=== PATIENT | female | born 2000 | race Caucasian/White ===

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

== ENCOUNTER → 2022-08-11 | Outpatient (CLI) | payer BC ==
[2022-08-12 02:59] LABS: BUN/Creat Ratio 17.12 Ratio (12.00-20.00); Blood Urea Nitrogen 13.7 mg/dL (9.0-27.0); Calcium 10.1 mg/dL (8.7-10.3); Carbon Dioxide 22.9 mmol/L (21.6-31.8); Chloride 104 mmol/L (96-109); Creatine Kinase 74 U/L (26-186); Glucose 84 mg/dL (70-110); Potassium 4.3 mmol/L (3.5-5.5); Rheumatoid Factor, Qnt <15 IU/mL (0-15); Sodium 141 mmol/L (135-145); Uric Acid 6.6 mg/dL (2.9-7.7)
[2022-08-12 03:00] LABS: ALT 16 U/L (8-44); AST 16 U/L (13-35)
[2022-08-12 03:20] LABS: Basophils # (A) 0.06 X 10*3/uL (0.00-0.10); Basophils % (A) 0.7 %; Eosinophils # (A) 0.21 X 10*3/uL (0.04-0.35); Eosinophils % (A) 2.5 %; HCT 42.4 % (37.2-46.3); HGB 13.7 d/dL (12.0-15.0); Lymphocytes % (A) 31.5 %; MCH 26.2 pg (27.0-32.0); MCHC 32.3 d/dL (32.0-37.0); MCV 81.2 FL (80.0-97.0); Mean Platelet Volume 12.2 FL (9.5-12.2); Monocytes # (A) 0.36 X 10*3/uL (0.20-1.00); Monocytes % (A) 4.4 %; NRBC Per 100 WBC 0 X 10*3/uL (0.00-0.01); Neutrophils % (A) 60.7 %; Platelet Count 208 X 10*3/uL (140-440); RBC 5.22 X 10*6/uL (4.10-5.20); RDW 13.1 % (11.5-14.5); WBC 8.25 X 10*3/uL (4.50-10.00)
[2022-08-12 04:37] LABS: Erythrocyte Sedimentation Rate 13 mm/Hr (0-20)
[2022-08-12 05:45] LABS: Cyclic Citrull Pep IgG Unit <1.5 U/mL (<=3.9); Cyclic Citrullinated Pep IgG Negative
[2022-08-12 10:48] LABS: Angiotensin-1 Converting Enz. 18 U/L (8-52)
[2022-08-12 13:28] LABS: HLA B27 NEGATIVE
== END | disposition home or self-care (01) ==
LOC: LABWHC1 15:33
PROVIDERS: ATTEND Orthopaedic Surgery
DX: M62.551 Muscle wasting and atrophy, not elsewhere classified, right thigh (principal); M22.41 Chondromalacia patellae, right knee; M23.91 Unspecified internal derangement of right knee; M25.562 Pain in left knee; M22.42 Chondromalacia patellae, left knee; M62.552 Muscle wasting and atrophy, not elsewhere classified, left thigh
CPT/HCPCS: 36415; 80048; 82164; 82306; 82550; 84439; 84443; 84450; 84460; 84550; 85025; 85652; 86038; 86140; 86200; 86431; 86812

== ENCOUNTER → 2023-04-20 | Day surgery (SDC) | payer BC ==
[2023-04-20] MEDS: SODIUM CHLORIDE 0.9% 1,000 ML IV SCH (06:27)
[2023-04-20 06:40] VITALS: BP 131/81; PULSE 117; RESP 18; TEMP 98.3
--- NOTE | 2023-04-20 19:04 | P.EPPROC ---
- EP Procedure Note Electrophysiology Procedure Note: Diagnosis Recurrent presyncope Twelve-lead EKG shows sinus mechanism normal AK narrow QRS normal ST segments normal QT interval Tilt table test per protocol Baseline blood pressure 126/75 mmHg baseline heart rate 72 beats a minute Patient tilted upright at regular 70 degrees per protocol mild increase in heart rate to 99 beats a minute Blood pressure remained stable Patient initially complained of dizziness and hot flash like sensation Later she was experiencing chest tightness and her heart rate increased to 114 beats a minute and felt warm. Later her legs felt tired. Subsequently her chest tightness became worse and she felt short of breath. At that time her heart rate went up to 128 beats a minute When she was laid supine her heart rate decreased to 67 beats a minute and she felt a lot better after lying flat Impression normal twelve-lead EKG Orthostatic intolerance without any secondary neurocardiogenic phenomena
== END | disposition home or self-care (01) ==
LOC: CATHEP 06:02
PROVIDERS: ATTEND Internal Medicine Clinical Cardiac Electrophysiology
DX: R55 Syncope and collapse (principal); Z79.899 Other long term (current) drug therapy
CPT/HCPCS: 81025; 93660